=== PATIENT | male | born 1950 | race American Indian/Alaskan Native ===

== ENCOUNTER 2019-08-04 09:54 | Outpatient (CLI) | payer MEDICARE, OTHER | END 2019-08-04 09:55 | disposition home or self-care (01) | LOC: WOUND 09:54 | PROVIDERS: ATTEND Surgery | DX: L59.8 Other specified disorders of the skin and subcutaneous tissue related to radiation (principal); C61 Malignant neoplasm of prostate; I10 Essential (primary) hypertension; Z87.891 Personal history of nicotine dependence | CPT/HCPCS: 99204; G0463 ==

== ENCOUNTER 2019-08-10 12:49 | Outpatient (CLI) | payer MEDICARE, OTHER ==
--- NOTE | 2019-08-10 13:37 | XRay Report ---
CHEST 2 VIEWS INDICATION: N30.40 PRE HBO DIVE. COMPARISON: None FINDINGS: Support devices: None. Heart: Within normal limits. Lungs/pleura: No acute air space or interstitial disease. No pneumothorax. Additional findings: None. IMPRESSION: Unremarkable chest x-ray. Signer Name: Raymond Gallagher Jr, MD Signed: 08/10/2019 1:33 PM Workstation Name: [id number]
== END 2019-08-10 12:50 | disposition home or self-care (01) ==
LOC: XRAY 12:49
PROVIDERS: ATTEND Surgery
DX: N30.40 Irradiation cystitis without hematuria (principal)
CPT/HCPCS: 71046

== ENCOUNTER 2019-08-11 09:55 | Outpatient (CLI) | payer MEDICARE, OTHER | END 2019-08-11 09:56 | disposition home or self-care (01) | LOC: WOUND 09:55 | PROVIDERS: ATTEND Surgery | DX: L59.8 Other specified disorders of the skin and subcutaneous tissue related to radiation (principal); C61 Malignant neoplasm of prostate; I10 Essential (primary) hypertension; Z87.891 Personal history of nicotine dependence | CPT/HCPCS: 82962; 99183; G0277 ==

== ENCOUNTER 2019-08-12 09:53 | Outpatient (CLI) | payer MEDICARE, OTHER | END 2019-08-12 09:54 | disposition home or self-care (01) | LOC: WOUND 09:53 | PROVIDERS: ATTEND Surgery | DX: L59.8 Other specified disorders of the skin and subcutaneous tissue related to radiation (principal); C61 Malignant neoplasm of prostate; I10 Essential (primary) hypertension; Z87.891 Personal history of nicotine dependence | CPT/HCPCS: 99183; G0277 ==

== ENCOUNTER 2019-08-15 10:31 | Outpatient (CLI) | payer MEDICARE, OTHER | END 2019-08-15 10:32 | disposition home or self-care (01) | LOC: WOUND 10:31 | PROVIDERS: ATTEND Surgery | DX: L59.8 Other specified disorders of the skin and subcutaneous tissue related to radiation (principal); C61 Malignant neoplasm of prostate; I10 Essential (primary) hypertension; Z87.891 Personal history of nicotine dependence | CPT/HCPCS: 99183; G0277 ==

== ENCOUNTER 2019-08-16 09:25 | Outpatient (CLI) | payer MEDICARE, OTHER | END 2019-08-16 09:26 | disposition home or self-care (01) | LOC: WOUND 09:25 | PROVIDERS: ATTEND Surgery | DX: L59.8 Other specified disorders of the skin and subcutaneous tissue related to radiation (principal); C61 Malignant neoplasm of prostate; I10 Essential (primary) hypertension; R73.09 Other abnormal glucose; Z87.891 Personal history of nicotine dependence | CPT/HCPCS: 82962; G0277; 99183 ==

== ENCOUNTER 2019-08-17 09:58 | Outpatient (CLI) | payer MEDICARE, OTHER | END 2019-08-17 09:59 | disposition home or self-care (01) | LOC: WOUND 09:58 | PROVIDERS: ATTEND Surgery | DX: N30.40 Irradiation cystitis without hematuria (principal); C61 Malignant neoplasm of prostate; I10 Essential (primary) hypertension; R30.0 Dysuria; Z87.891 Personal history of nicotine dependence | CPT/HCPCS: 99183; G0277 ==

== ENCOUNTER 2019-08-18 10:32 | Outpatient (CLI) | payer MEDICARE, OTHER | END 2019-08-18 10:33 | disposition home or self-care (01) | LOC: WOUND 10:32 | PROVIDERS: ATTEND Surgery | DX: N30.40 Irradiation cystitis without hematuria (principal); C61 Malignant neoplasm of prostate; I10 Essential (primary) hypertension; R30.0 Dysuria; Z87.891 Personal history of nicotine dependence | CPT/HCPCS: 99183; G0277 ==

== ENCOUNTER 2019-08-29 14:15 | Outpatient (CLI) | payer MEDICARE, OTHER | END 2019-08-29 14:16 | disposition home or self-care (01) | LOC: WOUND 14:15 | PROVIDERS: ATTEND Surgery | DX: N30.40 Irradiation cystitis without hematuria (principal); C61 Malignant neoplasm of prostate; R30.0 Dysuria; I10 Essential (primary) hypertension; Z87.891 Personal history of nicotine dependence | CPT/HCPCS: 99183; G0277 ==

== ENCOUNTER 2019-08-30 10:22 | Outpatient (CLI) | payer MEDICARE, OTHER | END 2019-08-30 10:23 | disposition home or self-care (01) | LOC: WOUND 10:22 | PROVIDERS: ATTEND Surgery | DX: N30.40 Irradiation cystitis without hematuria (principal); C61 Malignant neoplasm of prostate; R30.0 Dysuria; I10 Essential (primary) hypertension; Z87.891 Personal history of nicotine dependence | CPT/HCPCS: 99183; G0277 ==

== ENCOUNTER 2019-08-31 10:04 | Outpatient (CLI) | payer MEDICARE, OTHER | END 2019-08-31 10:05 | disposition home or self-care (01) | LOC: WOUND 10:04 | PROVIDERS: ATTEND Surgery | DX: N30.40 Irradiation cystitis without hematuria (principal); C61 Malignant neoplasm of prostate; I10 Essential (primary) hypertension; R30.0 Dysuria; Z87.891 Personal history of nicotine dependence | CPT/HCPCS: 99183; G0277 ==

== ENCOUNTER 2019-09-01 10:43 | Outpatient (CLI) | payer MEDICARE, OTHER | END 2019-09-01 10:44 | disposition home or self-care (01) | LOC: WOUND 10:43 | PROVIDERS: ATTEND Surgery | DX: N30.40 Irradiation cystitis without hematuria (principal); C61 Malignant neoplasm of prostate; I10 Essential (primary) hypertension; R30.0 Dysuria; Z87.891 Personal history of nicotine dependence | CPT/HCPCS: 99183; G0277 ==

== ENCOUNTER 2019-09-02 09:52 | Outpatient (CLI) | payer MEDICARE, OTHER | END 2019-09-02 09:53 | disposition home or self-care (01) | LOC: WOUND 09:52 | PROVIDERS: ATTEND Surgery | DX: N30.40 Irradiation cystitis without hematuria (principal); C61 Malignant neoplasm of prostate; I10 Essential (primary) hypertension; R30.0 Dysuria; Z87.891 Personal history of nicotine dependence | CPT/HCPCS: 99183; G0277 ==

== ENCOUNTER 2019-09-05 09:45 | Outpatient (CLI) | payer MEDICARE, OTHER | END 2019-09-05 09:46 | disposition home or self-care (01) | LOC: WOUND 09:45 | PROVIDERS: ATTEND Surgery | DX: N30.40 Irradiation cystitis without hematuria (principal); C61 Malignant neoplasm of prostate; I10 Essential (primary) hypertension; R30.0 Dysuria; Z87.891 Personal history of nicotine dependence | CPT/HCPCS: 99183; G0277 ==

== ENCOUNTER 2019-09-06 09:27 | Outpatient (CLI) | payer MEDICARE, OTHER | END 2019-09-06 09:28 | disposition home or self-care (01) | LOC: WOUND 09:27 | PROVIDERS: ATTEND Surgery | DX: N30.40 Irradiation cystitis without hematuria (principal); C61 Malignant neoplasm of prostate; I10 Essential (primary) hypertension; R30.0 Dysuria; Z87.891 Personal history of nicotine dependence | CPT/HCPCS: 99183; G0277 ==

== ENCOUNTER 2019-09-07 07:51 | Outpatient (CLI) | payer MEDICARE, OTHER | END 2019-09-07 07:52 | disposition home or self-care (01) | LOC: WOUND 07:51 | PROVIDERS: ATTEND Surgery | DX: N30.40 Irradiation cystitis without hematuria (principal); C61 Malignant neoplasm of prostate; R30.0 Dysuria; I10 Essential (primary) hypertension; Z87.891 Personal history of nicotine dependence | CPT/HCPCS: 99183; G0277 ==

== ENCOUNTER 2019-09-08 07:44 | Outpatient (CLI) | payer MEDICARE, OTHER | END 2019-09-08 07:45 | disposition home or self-care (01) | LOC: WOUND 07:44 | PROVIDERS: ATTEND Surgery | DX: N30.40 Irradiation cystitis without hematuria (principal); C61 Malignant neoplasm of prostate; R30.0 Dysuria; I10 Essential (primary) hypertension; Z87.891 Personal history of nicotine dependence | CPT/HCPCS: 99183; G0277 ==

== ENCOUNTER 2019-09-09 07:55 | Outpatient (CLI) | payer MEDICARE, OTHER | END 2019-09-09 07:56 | disposition home or self-care (01) | LOC: WOUND 07:55 | PROVIDERS: ATTEND Surgery | DX: N30.40 Irradiation cystitis without hematuria (principal); C61 Malignant neoplasm of prostate; R30.0 Dysuria; I10 Essential (primary) hypertension; Z87.891 Personal history of nicotine dependence | CPT/HCPCS: 99183; G0277 ==

== ENCOUNTER 2019-09-12 07:50 | Outpatient (CLI) | payer MEDICARE, OTHER | END 2019-09-12 07:51 | disposition home or self-care (01) | LOC: WOUND 07:50 | PROVIDERS: ATTEND Surgery | DX: N30.40 Irradiation cystitis without hematuria (principal); C61 Malignant neoplasm of prostate; R30.0 Dysuria; I10 Essential (primary) hypertension; Z87.891 Personal history of nicotine dependence | CPT/HCPCS: 99183; G0277 ==

== ENCOUNTER 2019-09-13 07:55 | Outpatient (CLI) | payer MEDICARE, OTHER | END 2019-09-13 07:56 | disposition home or self-care (01) | LOC: WOUND 07:55 | PROVIDERS: ATTEND Surgery | DX: N30.40 Irradiation cystitis without hematuria (principal); C61 Malignant neoplasm of prostate; R30.0 Dysuria; I10 Essential (primary) hypertension; Z87.891 Personal history of nicotine dependence | CPT/HCPCS: 99183; G0277 ==

== ENCOUNTER 2019-09-14 07:59 | Outpatient (CLI) | payer MEDICARE, OTHER | END 2019-09-14 08:00 | disposition home or self-care (01) | LOC: WOUND 07:59 | PROVIDERS: ATTEND Surgery | DX: N30.40 Irradiation cystitis without hematuria (principal); C61 Malignant neoplasm of prostate; R30.0 Dysuria; I10 Essential (primary) hypertension; Z87.891 Personal history of nicotine dependence | CPT/HCPCS: 99183; G0277 ==

== ENCOUNTER 2019-09-15 07:50 | Outpatient (CLI) | payer MEDICARE, OTHER | END 2019-09-15 07:51 | disposition home or self-care (01) | LOC: WOUND 07:50 | PROVIDERS: ATTEND Surgery | DX: N30.40 Irradiation cystitis without hematuria (principal); C61 Malignant neoplasm of prostate; R30.0 Dysuria; I10 Essential (primary) hypertension; Z87.891 Personal history of nicotine dependence | CPT/HCPCS: 99183; G0277 ==

== ENCOUNTER 2019-09-16 07:57 | Outpatient (CLI) | payer MEDICARE, OTHER | END 2019-09-16 07:58 | disposition home or self-care (01) | LOC: WOUND 07:57 | PROVIDERS: ATTEND Surgery | DX: N30.40 Irradiation cystitis without hematuria (principal); C61 Malignant neoplasm of prostate; R30.0 Dysuria; I10 Essential (primary) hypertension; Z87.891 Personal history of nicotine dependence | CPT/HCPCS: 99183; G0277 ==

== ENCOUNTER 2019-09-19 07:54 | Outpatient (CLI) | payer MEDICARE, OTHER | END 2019-09-19 07:55 | disposition home or self-care (01) | LOC: WOUND 07:54 | PROVIDERS: ATTEND Surgery | DX: N30.40 Irradiation cystitis without hematuria (principal); C61 Malignant neoplasm of prostate; R30.0 Dysuria; I10 Essential (primary) hypertension; Z87.891 Personal history of nicotine dependence | CPT/HCPCS: 99183; G0277 ==

== ENCOUNTER 2019-09-20 07:49 | Outpatient (CLI) | payer MEDICARE, OTHER | END 2019-09-20 07:50 | disposition home or self-care (01) | LOC: WOUND 07:49 | PROVIDERS: ATTEND Surgery | DX: N30.40 Irradiation cystitis without hematuria (principal); C61 Malignant neoplasm of prostate; R30.0 Dysuria; I10 Essential (primary) hypertension; Z87.891 Personal history of nicotine dependence | CPT/HCPCS: 99183; G0277 ==

== ENCOUNTER 2019-09-21 14:48 | Outpatient (CLI) | payer MEDICARE, OTHER | END 2019-09-21 14:49 | disposition home or self-care (01) | LOC: WOUND 14:48 | PROVIDERS: ATTEND Surgery | DX: N30.40 Irradiation cystitis without hematuria (principal); C61 Malignant neoplasm of prostate; R30.0 Dysuria; I10 Essential (primary) hypertension; Z87.891 Personal history of nicotine dependence | CPT/HCPCS: 99183; G0277 ==

== ENCOUNTER 2019-09-27 09:57 | Outpatient (CLI) | payer MEDICARE, OTHER | END 2019-09-27 09:58 | disposition home or self-care (01) | LOC: WOUND 09:57 | PROVIDERS: ATTEND Surgery | DX: N30.40 Irradiation cystitis without hematuria (principal); C61 Malignant neoplasm of prostate; R30.0 Dysuria; I10 Essential (primary) hypertension; Z87.891 Personal history of nicotine dependence | CPT/HCPCS: 99183; G0277 ==

== ENCOUNTER 2019-09-28 09:46 | Outpatient (CLI) | payer MEDICARE, OTHER | END 2019-09-28 09:47 | disposition home or self-care (01) | LOC: WOUND 09:46 | PROVIDERS: ATTEND Surgery | DX: N30.40 Irradiation cystitis without hematuria (principal); C61 Malignant neoplasm of prostate; R30.0 Dysuria; I10 Essential (primary) hypertension; Z87.891 Personal history of nicotine dependence | CPT/HCPCS: 99183; G0277 ==

== ENCOUNTER 2019-09-29 07:56 | Outpatient (CLI) | payer MEDICARE, OTHER | END 2019-09-29 07:57 | disposition home or self-care (01) | LOC: WOUND 07:56 | PROVIDERS: ATTEND Surgery | DX: N30.40 Irradiation cystitis without hematuria (principal); C61 Malignant neoplasm of prostate; R30.0 Dysuria; I10 Essential (primary) hypertension; Z87.891 Personal history of nicotine dependence | CPT/HCPCS: 99183; G0277 ==

== ENCOUNTER 2019-09-30 07:51 | Outpatient (CLI) | payer MEDICARE, OTHER | END 2019-09-30 07:52 | disposition home or self-care (01) | LOC: WOUND 07:51 | PROVIDERS: ATTEND Surgery | DX: N30.40 Irradiation cystitis without hematuria (principal); C61 Malignant neoplasm of prostate; I10 Essential (primary) hypertension; R30.0 Dysuria; Z87.891 Personal history of nicotine dependence | CPT/HCPCS: 99183; G0277 ==

== ENCOUNTER 2019-10-03 09:23 | Outpatient (CLI) | payer MEDICARE, OTHER | END 2019-10-03 09:24 | disposition home or self-care (01) | LOC: WOUND 09:23 | PROVIDERS: ATTEND Surgery | DX: N30.40 Irradiation cystitis without hematuria (principal); C61 Malignant neoplasm of prostate; R30.0 Dysuria; I10 Essential (primary) hypertension; Z87.891 Personal history of nicotine dependence | CPT/HCPCS: 99183; G0277 ==

== ENCOUNTER 2019-10-04 07:54 | Outpatient (CLI) | payer MEDICARE, OTHER | END 2019-10-04 07:55 | disposition home or self-care (01) | LOC: WOUND 07:54 | PROVIDERS: ATTEND Surgery | DX: N30.40 Irradiation cystitis without hematuria (principal); C61 Malignant neoplasm of prostate; I10 Essential (primary) hypertension; R30.0 Dysuria; Z87.891 Personal history of nicotine dependence | CPT/HCPCS: 99183; G0277 ==

== ENCOUNTER 2019-10-05 07:50 | Outpatient (CLI) | payer MEDICARE, OTHER | END 2019-10-05 07:51 | disposition home or self-care (01) | LOC: WOUND 07:50 | PROVIDERS: ATTEND Surgery | DX: N30.40 Irradiation cystitis without hematuria (principal); C61 Malignant neoplasm of prostate; I10 Essential (primary) hypertension; R30.0 Dysuria; Z87.891 Personal history of nicotine dependence | CPT/HCPCS: 99183; G0277 ==

== ENCOUNTER 2019-10-06 07:50 | Outpatient (CLI) | payer MEDICARE, OTHER | END 2019-10-06 07:51 | disposition home or self-care (01) | LOC: WOUND 07:50 | PROVIDERS: ATTEND Surgery | DX: N30.40 Irradiation cystitis without hematuria (principal); C61 Malignant neoplasm of prostate; I10 Essential (primary) hypertension; R30.0 Dysuria; Z87.891 Personal history of nicotine dependence | CPT/HCPCS: 99183; G0277 ==

== ENCOUNTER 2019-10-07 07:52 | Outpatient (CLI) | payer MEDICARE, OTHER | END 2019-10-07 07:53 | disposition home or self-care (01) | LOC: WOUND 07:52 | PROVIDERS: ATTEND Surgery | DX: N30.40 Irradiation cystitis without hematuria (principal); C61 Malignant neoplasm of prostate; I10 Essential (primary) hypertension; R30.0 Dysuria; Z87.891 Personal history of nicotine dependence | CPT/HCPCS: 99183; G0277 ==

== ENCOUNTER 2019-10-10 09:54 | Outpatient (CLI) | payer MEDICARE, OTHER | END 2019-10-10 09:55 | disposition home or self-care (01) | LOC: WOUND 09:54 | PROVIDERS: ATTEND Surgery | DX: N30.40 Irradiation cystitis without hematuria (principal); C61 Malignant neoplasm of prostate; I10 Essential (primary) hypertension; R30.0 Dysuria; Z87.891 Personal history of nicotine dependence | CPT/HCPCS: 99183; G0277 ==

== ENCOUNTER 2019-10-11 10:25 | Outpatient (CLI) | payer MEDICARE, OTHER | END 2019-10-11 10:26 | disposition home or self-care (01) | LOC: WOUND 10:25 | PROVIDERS: ATTEND Surgery | DX: N30.40 Irradiation cystitis without hematuria (principal); C61 Malignant neoplasm of prostate; I10 Essential (primary) hypertension; R30.0 Dysuria; Z87.891 Personal history of nicotine dependence | CPT/HCPCS: 99183; G0277 ==

== ENCOUNTER 2019-10-12 11:42 | Outpatient (CLI) | payer MEDICARE, OTHER | END 2019-10-12 11:43 | disposition home or self-care (01) | LOC: WOUND 11:42 | PROVIDERS: ATTEND Surgery | DX: N30.40 Irradiation cystitis without hematuria (principal); C61 Malignant neoplasm of prostate; I10 Essential (primary) hypertension; R30.0 Dysuria; Z87.891 Personal history of nicotine dependence | CPT/HCPCS: 99183; G0277 ==

== ENCOUNTER 2019-10-13 08:00 | Outpatient (CLI) | payer MEDICARE, OTHER | END 2019-10-13 08:01 | disposition home or self-care (01) | LOC: WOUND 08:00 | PROVIDERS: ATTEND Surgery | DX: N30.40 Irradiation cystitis without hematuria (principal); C61 Malignant neoplasm of prostate; I10 Essential (primary) hypertension; R30.0 Dysuria; Z87.891 Personal history of nicotine dependence | CPT/HCPCS: 99183; G0277 ==

== ENCOUNTER 2019-10-14 07:49 | Outpatient (CLI) | payer MEDICARE, OTHER | END 2019-10-14 07:50 | disposition home or self-care (01) | LOC: WOUND 07:49 | PROVIDERS: ATTEND Surgery | DX: N30.40 Irradiation cystitis without hematuria (principal); C61 Malignant neoplasm of prostate; I10 Essential (primary) hypertension; R30.0 Dysuria; Z87.891 Personal history of nicotine dependence | CPT/HCPCS: 99183; G0277 ==

== ENCOUNTER 2019-10-17 09:17 | Outpatient (CLI) | payer MEDICARE, OTHER | END 2019-10-17 09:18 | disposition home or self-care (01) | LOC: WOUND 09:17 | PROVIDERS: ATTEND Surgery | DX: N30.40 Irradiation cystitis without hematuria (principal); C61 Malignant neoplasm of prostate; I10 Essential (primary) hypertension; R30.0 Dysuria; Z87.891 Personal history of nicotine dependence | CPT/HCPCS: 99183; G0277 ==

== ENCOUNTER 2019-10-18 07:48 | Outpatient (CLI) | payer MEDICARE, OTHER | END 2019-10-18 07:49 | disposition home or self-care (01) | LOC: WOUND 07:48 | PROVIDERS: ATTEND Surgery | DX: N30.40 Irradiation cystitis without hematuria (principal); C61 Malignant neoplasm of prostate; I10 Essential (primary) hypertension; R30.0 Dysuria; Z87.891 Personal history of nicotine dependence | CPT/HCPCS: 99183; G0277 ==

== ENCOUNTER 2019-10-19 09:45 | Outpatient (CLI) | payer MEDICARE, OTHER | END 2019-10-19 09:46 | disposition home or self-care (01) | LOC: WOUND 09:45 | PROVIDERS: ATTEND Surgery | DX: N30.40 Irradiation cystitis without hematuria (principal); C61 Malignant neoplasm of prostate; I10 Essential (primary) hypertension; R30.0 Dysuria; Z87.891 Personal history of nicotine dependence | CPT/HCPCS: 99183; G0277 ==

== ENCOUNTER 2019-10-20 09:49 | Outpatient (CLI) | payer MEDICARE, OTHER | END 2019-10-20 09:50 | disposition home or self-care (01) | LOC: WOUND 09:49 | PROVIDERS: ATTEND Surgery | DX: N30.40 Irradiation cystitis without hematuria (principal); C61 Malignant neoplasm of prostate; I10 Essential (primary) hypertension; R30.0 Dysuria; Z87.891 Personal history of nicotine dependence | CPT/HCPCS: 99183; G0277 ==

== ENCOUNTER 2019-10-21 10:02 | Outpatient (CLI) | payer MEDICARE, OTHER | END 2019-10-21 10:03 | disposition home or self-care (01) | LOC: WOUND 10:02 | PROVIDERS: ATTEND Surgery | DX: N30.40 Irradiation cystitis without hematuria (principal); C61 Malignant neoplasm of prostate; I10 Essential (primary) hypertension; R30.0 Dysuria; Z87.891 Personal history of nicotine dependence | CPT/HCPCS: 99183; G0277 ==

== ENCOUNTER 2019-10-24 09:41 | Outpatient (CLI) | payer MEDICARE, OTHER | END 2019-10-24 09:42 | disposition home or self-care (01) | LOC: WOUND 09:41 | PROVIDERS: ATTEND Surgery | DX: N30.40 Irradiation cystitis without hematuria (principal); C61 Malignant neoplasm of prostate; R30.0 Dysuria; I10 Essential (primary) hypertension; Z87.891 Personal history of nicotine dependence | CPT/HCPCS: 99183; G0277 ==

== ENCOUNTER 2019-10-25 10:01 | Outpatient (CLI) | payer MEDICARE, OTHER | END 2019-10-25 10:02 | disposition home or self-care (01) | LOC: WOUND 10:01 | PROVIDERS: ATTEND Surgery | DX: N30.40 Irradiation cystitis without hematuria (principal); C61 Malignant neoplasm of prostate; R30.0 Dysuria; I10 Essential (primary) hypertension; Z87.891 Personal history of nicotine dependence | CPT/HCPCS: 99183; G0277 ==

== ENCOUNTER 2019-11-01 09:45 | Outpatient (CLI) | payer MEDICARE, OTHER | END 2019-11-01 09:46 | disposition home or self-care (01) | LOC: WOUND 09:45 | PROVIDERS: ATTEND Surgery | DX: N30.40 Irradiation cystitis without hematuria (principal); C61 Malignant neoplasm of prostate; R30.0 Dysuria; I10 Essential (primary) hypertension; Z87.891 Personal history of nicotine dependence | CPT/HCPCS: 99183; G0277 ==

== ENCOUNTER 2019-11-02 10:01 | Outpatient (CLI) | payer MEDICARE, OTHER | END 2019-11-02 10:02 | disposition home or self-care (01) | LOC: WOUND 10:01 | PROVIDERS: ATTEND Surgery | DX: N30.40 Irradiation cystitis without hematuria (principal); C61 Malignant neoplasm of prostate; R30.0 Dysuria; I10 Essential (primary) hypertension; Z87.891 Personal history of nicotine dependence | CPT/HCPCS: 99183; G0277 ==

== ENCOUNTER 2019-11-03 09:48 | Outpatient (CLI) | payer MEDICARE, OTHER | END 2019-11-03 09:49 | disposition home or self-care (01) | LOC: WOUND 09:48 | PROVIDERS: ATTEND Surgery | DX: N30.40 Irradiation cystitis without hematuria (principal); C61 Malignant neoplasm of prostate; R30.0 Dysuria; I10 Essential (primary) hypertension; Z87.891 Personal history of nicotine dependence | CPT/HCPCS: 99183; G0277 ==

== ENCOUNTER 2019-11-04 09:57 | Outpatient (CLI) | payer MEDICARE, OTHER | END 2019-11-04 09:58 | disposition home or self-care (01) | LOC: WOUND 09:57 | PROVIDERS: ATTEND Surgery | DX: N30.40 Irradiation cystitis without hematuria (principal); C61 Malignant neoplasm of prostate; R30.0 Dysuria; I10 Essential (primary) hypertension; Z87.891 Personal history of nicotine dependence | CPT/HCPCS: 99183; G0277 ==

== ENCOUNTER 2019-11-07 09:47 | Outpatient (CLI) | payer MEDICARE, OTHER | END 2019-11-07 09:48 | disposition home or self-care (01) | LOC: WOUND 09:47 | PROVIDERS: ATTEND Surgery | DX: N30.40 Irradiation cystitis without hematuria (principal); C61 Malignant neoplasm of prostate; R30.0 Dysuria; I10 Essential (primary) hypertension; Z87.891 Personal history of nicotine dependence | CPT/HCPCS: 99183; G0277 ==

== ENCOUNTER 2019-11-08 09:52 | Outpatient (CLI) | payer MEDICARE, OTHER | END 2019-11-08 09:53 | disposition home or self-care (01) | LOC: WOUND 09:52 | PROVIDERS: ATTEND Surgery | DX: N30.40 Irradiation cystitis without hematuria (principal); C61 Malignant neoplasm of prostate; R30.0 Dysuria; I10 Essential (primary) hypertension; Z87.891 Personal history of nicotine dependence | CPT/HCPCS: 82962; 99183; G0277 ==

== ENCOUNTER 2019-11-09 10:14 | Outpatient (CLI) | payer MEDICARE, OTHER | END 2019-11-09 10:15 | disposition home or self-care (01) | LOC: WOUND 10:14 | PROVIDERS: ATTEND Surgery | DX: N30.40 Irradiation cystitis without hematuria (principal); C61 Malignant neoplasm of prostate; R30.0 Dysuria; I10 Essential (primary) hypertension; Z87.891 Personal history of nicotine dependence | CPT/HCPCS: 99183; G0277 ==

== ENCOUNTER 2019-11-10 09:51 | Outpatient (CLI) | payer MEDICARE, OTHER | END 2019-11-10 09:52 | disposition home or self-care (01) | LOC: WOUND 09:51 | PROVIDERS: ATTEND Surgery | DX: N30.40 Irradiation cystitis without hematuria (principal); C61 Malignant neoplasm of prostate; R30.0 Dysuria; I10 Essential (primary) hypertension; Z87.891 Personal history of nicotine dependence | CPT/HCPCS: 99183; G0277 ==

== ENCOUNTER 2019-11-11 09:16 | Outpatient (CLI) | payer MEDICARE, OTHER | END 2019-11-11 09:17 | disposition home or self-care (01) | LOC: WOUND 09:16 | PROVIDERS: ATTEND Surgery | DX: N30.40 Irradiation cystitis without hematuria (principal); C61 Malignant neoplasm of prostate; R30.0 Dysuria; I10 Essential (primary) hypertension; Z87.891 Personal history of nicotine dependence | CPT/HCPCS: 99183; G0277 ==